=== PATIENT | male | born 1935 | race Caucasian/White ===

== ENCOUNTER 2016-10-30 19:30 | Emergency (ER) | payer MEDICARE, MEDICAID ==
[~2016-10-30] VITALS: Ht 182.9 cm; Wt 88.5 kg
[2016-10-30 19:57] LABS: URINE BILIRUBIN - DIPSTICK NEGATIVE (NEG); URINE BLOOD NEGATIVE (NEG)
[2016-10-30 20:07] LABS: URINE SQUAMOUS CELLS OCC #/hpf (OCC)
--- NOTE | 2016-10-30 21:15 | Emergency Room Report ---
History of Present Illness Time Seen by [id number] Presenting Problem in Triage Pt arrived:Walked Presenting Problem:PT C/O HALLUCINATIONS AND CONFUSION AND INVOLUNTARY MUSCLE MOVEMENTS Onset of symptoms date/time:/ or onset unknown for:MEDICAL HX UNKNOWN Treatment Prior to Arrival: [employer] Provided by: Sepsis Risk Assessment: Temp: 97.9 B/P: 123/63 MAP: 96 Pulse: 112 Resp: 18 Recent fever? N Clinical Suspician of Infection? N Mental Status: 1 - Regular (Normal Baseline) Sepsis Risk:Low Sepsis Risk Have you (or family members/close friends) recently traveled outside the [place]? N If Yes, where/when: Have you had exposure to infectious disease within the past month? N TB? Other? Specify: Source patient, RN notes reviewed, family, old records Exam Limitations no limitations Comment this wm who was d/c from [facility] today for copd/chf/cap and continued to have sx and came to [facility] ed for eval - he has no chest pain and blood collector cough and uses o2 and bpap at home - no hemoptysis or fever Cardiac Chest Pain Chest pain indicative of cardiac No Timing/Duration this evening Severity moderate ALLERGIES Coded Allergies: nitroglycerin (Mild, 10/30/16) Home Medications Reported Medications Prednisone (Prednisone 10MG) 10 MG PO DAILY #30 Cephalexin (Keflex 500MG) 500 MG PO QID #15 Potassium Chloride (POTASSIUM CHLORIDE 10mEq CAP) 10 MEQ PO DAILY #30 ERGOCALCIFEROL (VITAMIN D2) (Vitamin D2) 50,000 IUNITS PO WEEKLY #5 Furosemide 40 MG PO TID #90 Ramipril 10 MG PO DAILY #60 Metoprolol Succinate (Metoprolol Succinate XL) 100 MG PO DAILY #30 Atorvastatin Calcium 40 MG PO DAILY #30 CYANOCOBALAMIN (VITAMIN B-12) (Vitamin B-12) 1,000 MCG PO DAILY #30 ASPIRIN (Aspirin) 81 MG PO DAILY History Medical History General CAD? No Angina: No [place]: Yes Hypertension? Yes Hyperlipidemia? Yes CHF? Yes DVT? No PE? No COPD? Yes Asthma? No Anemia? No GERD? No Gastric ulcers? No GI Bleed? No Hernia? No Thyroid Problems? No Hypothyroidism? No CVA? Yes Seizures? No Diabetes? No Insulin Dependent: No Insulin Pump: No Home FSBS? No Renal Insuffiency? Yes End Stage Renal Disease? Yes UTI? No Stones? No BPH? No GB Disease: No Nephritic Syndrome? No Asplenia? No Hepatitis? No Sickle Cell Disease? No Arthritis? No Migraines? No Cataracts? No Glaucoma? No MRSA? No HIV? No TB? No Anxiety? No Depression? No Cancer? No More? No Immunization Hx DT/Tetanus Unknown Surgical Hx Previous Surgery?Y CARDIAC STENTS X3 RENAL STENT Social History Smoking Hx Smoker: Former Smoker Tobacco: Yes Type Cigarettes Alcohol Alcohol: No Drugs none Review of Systems All Other Systems Reviewed and Negative Constitutional denies fever Eyes denies drainage ENT denies: ear pain, epistaxis, throat pain. Respiratory cough, shortness of breath, wheezing Cardiovascular denies chest pain, denies palpitations, denies syncope Gastrointestinal denies abdominal pain, denies diarrhea, denies vomiting Genitourinary denies: dysuria, frequency, hesitancy, hematuria. Musculoskeletal denies joint pain, denies joint swelling Skin denies rash Psychiatric/Neurological denies headache, denies seizure Physical Exam Vital Signs Vital Signs Date Time Temp Pulse Resp B/P Pulse O2 O2 Flow FiO2 Ox Delivery Rate 10/30 2332 128 18 134/81 93 2 10/30 2208 114 18 114/76 93 2 10/30 2113 112 18 123/63 93 2 10/30 1932 97.9 110 18 126/82 93 2 - WBC >12,000 or <4,000 or 10% bands? 2 or more SIRS Criteria Met? B/P:134/81 MAP:96 Creatinine >2.0? UA output<0.5ml/kg/hr for 2 hrs? Platelet count >100,000? Lactate >2.0mmol/1? INR >1.2 or PTT > than 60 sec? Evidence of Organ Dysfunction? Provider documented clinical suspician of infection? N Sepsis Criteria Count: 1 Sepsis Risk: Low Sepsis Risk General Appearance no apparent distress Eye Exam - bilateral eye PERRL, bilateral eye EOMI Ear, Nose, Throat normal ENT inspection Neck supple Respiratory Status No: respiratory distress. Lung Sounds bilateral: rhonchi, wheezing. Cardiovascular regular rate/rhythm, systolic murmur, gallop/S4 Peripheral Pulses Pulses normal Yes Gastrointestinal soft Extremities no calf tenderness, pedal edema Strength 4 Upper Ext (L), 4 Upper Ext (R), 4 Lower Ext (L), 4 Lower Ext (R) Neurologic alert, rn medical inpatient services II-XII nml as tested, no motor/sensory deficits Reflexes Reflexes normal No Mental status normal mood/affect Skin intact Medical Decision Making LABS/Meds/Orders Pt receiving controlled substance in ED? No Results/Orders Laboratory Tests 10/30/162246: ABG pH 7.32 L, ABG pCO2 (Temp Corrct 80.7 H, ABG pO2 (Temp Correct 81.5, ABG HCO3 40.9 H, ABG Total CO2 43.4 H, ABG O2 Sat (Calculated) 95.2, ABG Base Excess 14.9 H, Luis Test Y, Blood Gas Comments R/R 10/30/162129: Creatine Kinase 33 L, CK-MB (CK-2) Rel Index 5.2 H, CK and CKMB Interp 1.7, Troponin I 0.05 10/30/162129: Sodium 142, Potassium 4.4, Chloride 102, Carbon Dioxide 39 H, BUN 29 H, Creatinine 1.5 H, Estimated Creat Clear 50, Estimated GFR (MDRD) 45, Glucose 176 H, Calcium 8.8, Total Bilirubin 0.6, AST 9 L, ALT 21, Alkaline Phosphatase 71, Total Protein 7.9, Albumin 2.9 L, Globulin 5.0 H, Albumin/Globulin Ratio 0.6 L 10/30/16 2100: Lactic Acid 1.5 10/30/16 2100: B-Natriuretic Peptide Pending, WBC 8.6, RBC 3.99 L, Hgb 12.5 L, Hct 39.9 L, MCV 100.1 H, RDW 14.4, Plt Count 298, MPV 6.1 L, Gran % 90.1 H, Gran # 7.8, Total Counted 100, Lymphocytes % 6.6 L, Monocytes % 2.9, Eosinophils % 0.3, Basophils % 0.1, Neutrophils 92 H, Lymphocytes (Manual) 7 L, Lymphocytes # 0.6 L, Monocytes (Manual) 1 L, Monocytes # 0.3, Eosinophils # 0.0, Basophils # 0.0 , Platelet Estimate NORMAL, Anisocytosis 1+, PUBS MCHC 31.3 L, MCH 31.3 H 10/30/161944: Urine Color YELLOW, Urine Appearance CLEAR, Urine pH 6.0, Ur Specific [place] 1.020, Urine Protein 1+ H, Urine Ketones NEGATIVE, Urine Blood NEGATIVE, Urine Nitrate NEGATIVE, Urine Bilirubin NEGATIVE, Urine Urobilinogen 0.2, Ur Leukocyte Esterase NEGATIVE, Urine WBC OCC, Ur Squamous Epith Cells OCC, Urine Bacteria 2+ , Hyaline Casts 10-20, Urine Mucus 2+, Urine Glucose NEGATIVE Current Medication Orders Sig/James Start time Last Medication Dose Route Stop Time Status Admin Albuterol/Ipratropium 3 ML ONCE ONE 10/30 2329 DC 10/30 INH 10/30 Furosemide 40 MG ONCE ONE 10/30 2329 DC 10/30 IV 10/30 Methylprednisolone 125 MG ONCE ONE 10/30 2329 DC 10/30 Sodium Succinate IV 10/30 Albuterol/Ipratropium 0 .STK-MED ONE 10/30 2328 DC INH Methylprednisolone 0 .STK-MED ONE 10/31 2327 DC Sodium Succinate .ROUTE Furosemide 0 .STK-MED ONE 10/30 2326 DC .ROUTE Sodium Chloride 10 ML PRN PRN 10/30 1944 AC IV 11/01 1939 Orders Procedure Date/time Status DIET-NOTHING BY MOUTH 10/31 B Active RT REQUEST DUONEB 10/30 2329 Active BRAIN NATRIURETIC PEPTIDE 10/[address] CHEST W/O CONTRAST 10/[address] SCAN REQ 10/30 2246 Complete ARTERIAL BLOOD GAS REQUEST 10/30 2234 Active CARDIAC ENZYMES 10/30 2113 Complete DIFFERENTIAL-WBC 10/[address] HEAD W/O CONTRAST 10/30 1949 Active CULTURE, URINE 10/30 1944 Active OXYGEN PER NURSE 10/30 1942 Active CULTURE, BLOOD 10/[address] HEAD REQ 10/30 1940 Complete CHEST-AP VIEW ONLY 10/30 1940 Active IV SALINE LOCK 10/30 1940 Active URINALYSIS/COMPLETE 10/30 1940 Complete LACTIC ACID 10/30 1940 Complete CBC WITH AUTO DIFF 10/30 1940 Complete CHEM 12 PROFILE 10/30 1940 Complete XRAY/CT/US XRAY/CT/US 1 XRAY chest XR interpretation by reviewed by me Xray Results abnormal (see chart) CT head CT interpretation by discussed w/radiologist Time results known: 3 CT Results abnormal XRAY/CT/US [address] interpretation by discussed w/radiologist Time results known: 2356 CT Results abnormal (see report) Departure Departure Time of Disposition 2337 Disposition DC Home or Self Care(routine) Clinical Impression Primary Impression: COPD (chronic obstructive pulmonary disease) with acute bronchitis Secondary Impressions: Abdominal aneurysm Aortic aneurysm of unspecified site, without rupture Qualifiers: Aortic location: thoracic aorta Qualified Code: I71.2 - Thoracic aortic aneurysm, without rupture CAP (community acquired pneumonia) Renal insufficiency Condition STABLE Patient Instructions DI for Chronic Obstructive Pulmonary Disease Additional Instructions fluids and use meds and use bpap at home and call pcp in am ED Critical Care Critical Care No Comments pt declined to be admitted or transferred at 2702
[2016-10-30 21:26] LABS: HEMOGLOBIN 12.5 g/dL (14.1-18.0); LYMPH # 0.6 K/mm3 (0.7-4.5); LYMPH % 6.6 % (10-50)
[2016-10-30 22:01] LABS: NEUTROPHILS 92 % (42-76)
[2016-10-30] MEDS ORDERED: PREDNISONE 10MG10 MG PO (22:41)
[2016-10-30] MEDS ORDERED: KEFLEX500 M1 PO (22:42)
[2016-10-30] MEDS ORDERED: VITAMIN D50000 I1 PO (22:43)
[2016-10-30] MEDS ORDERED: POTASSIUM CHLO10 MEQ PO (22:43)
[2016-10-30] MEDS ORDERED: FUROSEMIDE 40MG40 M1 PO (22:45)
[2016-10-30] MEDS ORDERED: RAMIPRIL10 MG PO (22:45)
[2016-10-30] MEDS ORDERED: ATORVASTATIN CA40 MG PO (22:46)
[2016-10-30] MEDS ORDERED: METOPROLOL SUC100 M2 PO (22:46)
[2016-10-30] MEDS ORDERED: RESTORIL 30MG C30 MG PO (22:47)
[2016-10-30 22:49] LABS: ALLEN'S TEST Y; ARTERIAL ABE 14.9 MMOL/L (-2.4-+2.3); ARTERIAL PO2 81.5 MMHG (80-100); ARTERIAL TCO2 43.4 MMOL/L (23-27); OXYGEN 3
[2016-10-30] MEDS ORDERED: LEADER NATUR1000 MCG PO (22:49)
[2016-10-30] MEDS ORDERED: ASPIRIN 81MG TA81 MG PO (22:50)
[2016-10-31 00:10] VITALS: BP 134/81
--- NOTE | 2016-10-31 08:19 | RADIOLOGY REPORT PS360 ---
CHEST-AP VIEW ONLY HISTORY: Severe shortness of breath with COPD, O2 supplementation HALLUCINATIONS, CONFUSION, RECENT PNEUMONIA ORDERING PHYSICIAN: Radha Mccord MD PATIENT AGE: 81 years COMPARISON: None available FINDINGS: Cardiomegaly with pulmonary venous congestion consistent with CHF. Patchy opacities in is present in the mid lung zones bilaterally consistent with bilateral pneumonia. There are small bilateral effusions.. No acute bony abnormalities. IMPRESSION: 1. CHF with bilateral effusions. 2. Airspace disease in both mid lungs in the perihilar regions which may be due to pneumonia. Follow-up recommended as pulmonary nodules could be obscured.
--- NOTE | 2016-10-31 08:36 | RADIOLOGY REPORT PS360 ---
CT CHEST W/O CONTRAST HISTORY: Shortness of air, abnormal chest x-ray SOA, ABD CXR ORDERING PHYSICIAN: Radha Mccord MD PATIENT AGE: 81 years TECHNIQUE: Helical acquisition obtainedwithout contrast. Axial, sagittal, and coronal reformatted images are generated and reviewed. COMPARISON: Radiograph of the same day FINDINGS: There is fusiform aneurysmal dilatation of the ascending aorta measuring up to 5 cm in AP dimension. There is cardiomegaly with four-chamber enlargement. Coronary artery calcifications, aortic root calcifications, and mitral valve annular calcifications noted. There are small bilateral pleural effusions. Scattered small lymph nodes are present within the mediastinum and bob. There are opacities in the upper lobes, lingula, and right middle lobe with consolidation in the lower lobes consistent with bilateral pneumonia. Upper abdominal images shows fusiform dilatation of the infrarenal abdominal aorta at 3.7 cm. Cholelithiasis noted. Left renal artery stent is in place. Multilevel spondylosis of the thoracic spine. IMPRESSION: 1. Bilateral pneumonia with bilateral pleural effusions. 2. 5 cm fusiform aneurysmal dilatation of the ascending aorta. 3. 3.7 cm infrarenal abdominal aortic aneurysm incompletely imaged.
--- NOTE | 2016-10-31 08:38 | RADIOLOGY REPORT PS360 ---
CT HEAD W/O CONTRAST HISTORY: Headache with weakness and confusion H/A ORDERING PHYSICIAN: Radha Mccord MD PATIENT AGE: 81 years COMPARISON: None TECHNIQUE: Axial images obtained without contrast. Brain and bone windows reviewed. FINDINGS: No midline shift, mass effect, intracranial hemorrhage, hydrocephalus, or extra-axial fluid collection is evident. Mild atrophy with hypoattenuation in the periventricular and subcortical region consistent with ischemic gliotic change from chronic microvascular disease. Old bilateral lacunar infarctions noted of the basal ganglia. Hypoattenuation posterior right parietal lobe consistent with encephalomalacia change from prior infarction. Old left lamina paprycia fracture The calvarium has an unremarkable appearance. No mastoid effusion. The visualized paranasal sinuses are unremarkable. IMPRESSION: 1. No acute intracranial pathology. 2. Atrophy with chronic ischemic changes.
== END 2016-10-31 00:28 | disposition home or self-care (01) ==
LOC: ER 19:30
PROVIDERS: Emergency Medicine
DX: J44.1 Chronic obstructive pulmonary disease with (acute) exacerbation (principal); I71.2 Thoracic aortic aneurysm, without rupture; J18.9 Pneumonia, unspecified organism; N28.9 Disorder of kidney and ureter, unspecified; I10 Essential (primary) hypertension